=== PATIENT | female | born 1940 | race Caucasian/White ===

== ENCOUNTER 2018-06-02 21:29 | Inpatient (IN) | payer OTHER ==
[~2018-06-02] VITALS: Ht 160 cm; Wt 55.5 kg
[2018-06-02 21:35] VITALS: Ht 160 cm; Wt 55.5 kg
[2018-06-02 22:25] LABS: CALCIUM 9.3 mg/dL (8.5-10.1); CARBON DIOXIDE 30.5 mmol/L (21-32); CHLORIDE SERUM 107 mmol/L (98-107); CREATININE SERUM 0.9 mg/dL (0.6-1.0); GLUCOSE SERUM 101 mg/dL (74-106); SODIUM SERUM 143 mmol/L (136-145)
[2018-06-02 22:29] LABS: ALKALINE PHOSPHATASE 83 U/L (46-116); ALT/SGPT 26 U/L (14-59); AST/SGOT 17 U/L (15-37); BILIRUBIN TOTAL 0.2 mg/dL (0.20-1.00); TOTAL PROTEIN, SERUM 6.6 g/dL (6.4-8.2)
[2018-06-02 22:30] LABS: BASOPHIL % 0.8 % (0-2); PLATELET COUNT 185 x10^3mcL (130-400)
[2018-06-02 22:31] LABS: RED CELL DISTRIBUTION WIDTH 14.8 % (11.5-14.5)
[2018-06-02 22:36] LABS: ALBUMIN 3.2 g/dL (3.4-5.0)
[2018-06-03 02:07] VITALS: BP 147/58
[2018-06-03 06:01] VITALS: BP 113/51
[2018-06-03 07:39] VITALS: BP 141/59
[2018-06-03 13:04] VITALS: BP 141/59
== END 2018-06-03 13:48 | disposition home or self-care (01) | DRG 301 ==
LOC: ED 21:29 → DU 06-03 00:03 → MU 06-03 05:12
PROVIDERS: Emergency Medicine; ADMIT Internal Medicine Pulmonary Disease
DX: I82.402 Acute embolism and thrombosis of unspecified deep veins of left lower extremity (principal); Z86.011 Personal history of benign neoplasm of the brain
CPT/HCPCS: J1650; J2270; J2765; Q0092